=== PATIENT | female | born 2000 | race Caucasian/White ===

== ENCOUNTER 2018-04-05 15:24 | Day surgery (SDC) | payer OTHER, MEDICAID ==
[2018-04-05] MEDS: LACTATED RINGER'S 1,000 ML IV (15:51)
[2018-04-05] MEDS ORDERED: DIPHENHYDRAMINE 50 MG INJ IV (17:00)
[2018-04-05] MEDS ORDERED: ONDANSETRON 4 MG INJ IV (17:00)
[2018-04-05] MEDS ORDERED: HYDROmorphONE 1 MG/5 ML IV SYRINGE IV (17:00)
[2018-04-05] MEDS ORDERED: MEPERIDINE 25 MG INJ IV (17:00)
[2018-04-05] MEDS ORDERED: FENTAnyl 50 MCG/ML VIAL IV (17:00)
[2018-04-05] MEDS ORDERED: FENTAnyl 50 MCG/ML VIAL (17:01)
[2018-04-05] MEDS ORDERED: MIDAZOLAM 1 MG/ML 2 ML INJ (17:01)
[2018-04-05] MEDS: BUPIVACAINE 0.5% (SDV) 30 ML INJ (17:38)
[2018-04-05] MEDS ORDERED: CEFAZOLIN 1 GM INJ (18:10)
[2018-04-05] MEDS ORDERED: PROPOFOL 20 ML (18:10)
[2018-04-05] MEDS ORDERED: LIDOCAINE 2% (SDV) 5 ML INJ (18:10)
[2018-04-05] MEDS ORDERED: ONDANSETRON 4 MG INJ (18:11)
[2018-04-05] MEDS ORDERED: MEPERIDINE /PF (100 MG/2 ML) AMPULE (18:22)
[2018-04-05] MEDS: HYDROmorphONE 1 MG/5 ML IV SYRINGE IV (18:39)
== END 2018-04-05 19:40 | disposition home or self-care (01) ==
LOC: SDS 15:24
DX: S62.627D Displaced fracture of middle phalanx of left little finger, subsequent encounter for fracture with routine healing (principal); X58.XXXD Exposure to other specified factors, subsequent encounter
CPT/HCPCS: 26746; 73140; 84703